=== PATIENT | female | born 1965 | race Caucasian/White ===

== ENCOUNTER 2016-08-09 01:53 | Emergency (ER) | payer BC ==
[~2016-08-09] VITALS: Ht 170.2 cm; Wt 93.0 kg
[~2016-08-09 01:53] MED LIST: PROVENTIL,2.5 MG/0.5 IH
[2016-08-09 02:19] LABS: HEMATOCRIT 40.5 % (36.0-46.0); MCHC 33.3 G/DL (30.0-36.0); MCV 87.1 FL (83-99); MEAN PLAT.VOLUME 8.4 uM^3 (9.5-12.4); PLATELET COUNT 371 K/uL (156-360); RBC DIS.WIDTH-CV 13.8 % (11.8-14.6); RBC DIS.WIDTH-SD 42.8 % (39-53); RED BLOOD COUNT 4.65 M/uL (3.80-5.20); WHITE BLOOD COUNT 15.2 K/uL (4.1-10.2)
[2016-08-09 02:30] LABS: CHLORIDE 105 mEq/L (99-109); POTASSIUM 4.1 mEq/L (3.7-5.4); SODIUM 143 mEq/L (136-147)
[2016-08-09 02:32] LABS: GLUCOSE 147 mg/dL (70-99)
[2016-08-09 02:34] LABS: ANION GAP 12 MEQ/L (2-14)
[2016-08-09 02:36] LABS: GFR ESTIMATE (CALCULATED) > 59 mL/min/
[2016-08-09 02:37] LABS: UREA NITROGEN (BUN) 12 mg/dL (9-23)
[2016-08-09] MEDS ORDERED: LEVAQUIN750 MG PO (03:22)
[2016-08-09 04:13] VITALS: BP 131/89
== END 2016-08-09 04:14 | disposition home or self-care (01) ==
LOC: EME 01:53
PROVIDERS: Emergency Medicine
DX: J20.9 Acute bronchitis, unspecified (principal); J18.9 Pneumonia, unspecified organism; Z88.6 Allergy status to analgesic agent; Z87.891 Personal history of nicotine dependence
CPT/HCPCS: 71020; 80048; 85027; 94640; 99281; 99284

== ENCOUNTER 2017-02-12 01:10 | Emergency (ER) | payer OTHER, BC ==
[~2017-02-12] VITALS: Ht 172.7 cm; Wt 90.3 kg
[~2017-02-12 01:10] MED LIST changes: +LEVAQUIN750 MG PO
[2017-02-12] MEDS ORDERED: PERCOCET 5/31 TABLET PO (01:37)
[2017-02-12 01:56] VITALS: BP 145/98
== END 2017-02-12 01:57 | disposition home or self-care (01) ==
LOC: EME 01:10
DX: M70.62 Trochanteric bursitis, left hip (principal); F17.200 Nicotine dependence, unspecified, uncomplicated
CPT/HCPCS: 99281; 99284

== ENCOUNTER 2017-07-11 14:43 | Emergency (ER) | payer OTHER ==
[~2017-07-11] VITALS: Ht 172.7 cm; Wt 92.4 kg
[~2017-07-11 14:43] MED LIST changes: +PERCOCET 5/31 TABLET PO
[2017-07-11 18:47] VITALS: BP 129/86
== END 2017-07-11 19:18 | disposition home or self-care (01) ==
LOC: EME 14:43
DX: R20.0 Anesthesia of skin (principal); H57.11 Ocular pain, right eye; S01.111D Laceration without foreign body of right eyelid and periocular area, subsequent encounter; W01.0XXD Fall on same level from slipping, tripping and stumbling without subsequent striking against object, subsequent encounter; J45.909 Unspecified asthma, uncomplicated; Z88.5 Allergy status to narcotic agent; Z87.891 Personal history of nicotine dependence
CPT/HCPCS: 70450; 99281; 99284

== ENCOUNTER 2017-08-27 22:30 | Emergency (ER) | payer BC ==
[~2017-08-27] VITALS: Ht 172.7 cm; Wt 94.9 kg
[2017-08-27 23:50] LABS: HEMATOCRIT 37.8 % (36.0-46.0); HEMOGLOBIN 12.8 G/DL (11.9-15.5); MCH 29.3 PG (29.0-34.0); MCHC 33.9 G/DL (30.0-36.0); MCV 86.5 FL (83-99); PLATELET COUNT 284 K/uL (156-360); RBC DIS.WIDTH-CV 12.8 % (11.8-14.6); RBC DIS.WIDTH-SD 40.5 % (39-53); RED BLOOD COUNT 4.37 M/uL (3.80-5.20); WHITE BLOOD COUNT 5.2 K/uL (4.1-10.2)
[2017-08-28] LABS: CHLORIDE 107 mEq/L (99-109); POTASSIUM 3.7 mEq/L (3.7-5.4); SODIUM 142 mEq/L (136-147)
[2017-08-28 00:03] LABS: GLUCOSE 97 mg/dL (70-99); TOTAL PROTEIN 6.7 g/dL (6.4-8.3)
[2017-08-28 00:05] LABS: TOTAL BILIRUBIN 1.2 mg/dL (0.0-1.0)
[2017-08-28 00:06] LABS: ALKALINE PHOSPHATASE 108 IU/L (3-129); CREATININE 0.6 mg/dL (0.6-1.3); GFR ESTIMATE (CALCULATED) > 59 mL/min/
[2017-08-28 00:08] LABS: AST (GOT) 22 IU/L (2-34); UREA NITROGEN (BUN) 10 mg/dL (9-23)
[2017-08-28 00:09] LABS: ALT (GPT) 30 IU/L (3-49)
[2017-08-28 00:10] LABS: LIPASE 17 U/L (1.0-51.0)
[2017-08-28 00:13] LABS: TROP-I INTERPRETATION NEGATIVE; TROPONIN-I < 0.01 ng/mL (0.0-0.30)
[2017-08-28 02:26] LABS: TROP-I INTERPRETATION NEGATIVE; TROPONIN-I < 0.01 ng/mL (0.0-0.30)
[2017-08-28 03:26] VITALS: BP 128/79
== END 2017-08-28 03:28 | disposition home or self-care (01) ==
LOC: EME 22:30
PROVIDERS: Emergency Medicine
DX: R07.89 Other chest pain (principal); R10.13 Epigastric pain; R94.31 Abnormal electrocardiogram [ECG] [EKG]; Z82.49 Family history of ischemic heart disease and other diseases of the circulatory system; E78.5 Hyperlipidemia, unspecified; J45.909 Unspecified asthma, uncomplicated; J30.9 Allergic rhinitis, unspecified; F41.0 Panic disorder [episodic paroxysmal anxiety]; Z87.891 Personal history of nicotine dependence; Z90.49 Acquired absence of other specified parts of digestive tract; Z88.5 Allergy status to narcotic agent; Z88.8 Allergy status to other drugs, medicaments and biological substances
CPT/HCPCS: 71046; 80053; 83690; 84484; 85027; 93005; 99281; 99284

== ENCOUNTER 2018-01-16 05:27 | Emergency (ER) | payer BC ==
[~2018-01-16] VITALS: Ht 172.7 cm; Wt 86.8 kg
[2018-01-16 06:34] LABS: HEMATOCRIT 40.7 % (36.0-46.0); HEMOGLOBIN 13.9 G/DL (11.9-15.5); MCHC 34.2 G/DL (30.0-36.0); MCV 87.9 FL (83-99); PLATELET COUNT 264 K/uL (156-360); RBC DIS.WIDTH-CV 13.1 % (11.8-14.6); RBC DIS.WIDTH-SD 42.2 % (39-53); RED BLOOD COUNT 4.63 M/uL (3.80-5.20); WHITE BLOOD COUNT 6.9 K/uL (4.1-10.2)
[2018-01-16 06:50] LABS: ALBUMIN 3.9 G/DL (3.2-4.8); CHLORIDE 104 MEQ/L (99-109); POTASSIUM 3.6 MEQ/L (3.7-5.4); SODIUM 141 MEQ/L (136-147)
[2018-01-16 06:56] LABS: ALKALINE PHOSPHATASE 87 IU/L (3-129); ALT (GPT) 21 IU/L (3-49); AST (GOT) 20 IU/L (2-34); CREATININE 0.6 MG/DL (0.6-1.3); GFR ESTIMATE (CALCULATED) > 59 mL/min/; GLUCOSE 105 mg/dL (70-99); LIPASE 45 U/L (1.0-51.0); TOTAL PROTEIN 6.2 G/DL (6.4-8.3); UREA NITROGEN (BUN) 9 mg/dL (9-23)
[2018-01-16 07:44] LABS: APPEARANCE CLEAR ((CLEAR)); BILIRUBIN NEGATIVE; BLOOD NEGATIVE; COLOR YELLOW ((YELLOW)); GLUCOSE (STRIP) NEGATIVE; KETONES NEGATIVE; LEUKOCYTES NEGATIVE; NITRITE NEGATIVE; PROTEIN (STRIP) NEGATIVE; SPECIFIC GRAVITY 1.005 (1.000-1.030); UCUL ADDED? NO; UROBILINOGEN 0.2 MG/DL (0.2-1.0)
[2018-01-16] MEDS ORDERED: BENTYL10 MG PO (09:49)
[2018-01-16 13:18] VITALS: BP 128/75
== END 2018-01-16 13:18 | disposition home or self-care (01) ==
LOC: EME 05:27
PROVIDERS: Physician Assistant
DX: K52.9 Noninfective gastroenteritis and colitis, unspecified (principal); K76.0 Fatty (change of) liver, not elsewhere classified; E78.5 Hyperlipidemia, unspecified; J45.909 Unspecified asthma, uncomplicated; F41.0 Panic disorder [episodic paroxysmal anxiety]; Z88.5 Allergy status to narcotic agent; Z90.49 Acquired absence of other specified parts of digestive tract; F17.200 Nicotine dependence, unspecified, uncomplicated
CPT/HCPCS: 74177; 80053; 81003; 83690; 84702; 85027; 99281; 99284; J2405; J3010; J7030

== ENCOUNTER 2018-01-23 15:44 | Emergency (ER) | payer BC ==
[~2018-01-23] VITALS: Ht 172.7 cm; Wt 86.0 kg
[~2018-01-23 15:44] MED LIST changes: +BENTYL10 MG PO
[2018-01-23] MEDS ORDERED: ATARAX,VISTARIL50 MG PO (17:25)
[2018-01-23 17:35] VITALS: BP 168/92
== END 2018-01-23 17:35 | disposition home or self-care (01) ==
LOC: EME 15:44
DX: F41.9 Anxiety disorder, unspecified (principal); E78.5 Hyperlipidemia, unspecified; J45.909 Unspecified asthma, uncomplicated; F17.200 Nicotine dependence, unspecified, uncomplicated; Z88.5 Allergy status to narcotic agent; Z88.8 Allergy status to other drugs, medicaments and biological substances
CPT/HCPCS: 99281; 99283